=== PATIENT | male | born 1955 ===

== ENCOUNTER 2017-06-14 07:13 | Emergency (ER) | payer BC ==
--- NOTE | 2017-06-14 07:17 | ER Report ---
History and Physical Time Seen By MD: 07:10 HPI/ROS CHIEF COMPLAINT: Partial trauma alert; Coy Jin; 1955 HISTORY OF PRESENT ILLNESS: Patient was seen immediately upon arrival. Patient is a 61-year-old male who is brought to the emergency department by EMS after falling down elevator shaft of approximately 1 floor. The patient has some amnesia regarding the events and cannot give a clear to sites of history. According to EMS patient was in the old building and he fell approximately 1 floor down elevator shaft. Mostly complaining of right-sided pelvic and hip pain. The patient is unable to move the right lower extremity secondary to pain. Patient has a past mental history for diabetes he is also on Xarelto for prior history of strokes. Patient denies any headache or head pain. Denies neck pain. He does report pain to the thoracic and lumbar spine. He denies abdominal pain. REVIEW OF SYSTEMS: Constitutional: No fever, no chills. Eyes: No discharge. ENT: No sore throat. Cardiovascular: No chest pain, no palpitations. Respiratory: No cough, no shortness of breath. Gastrointestinal: No abdominal pain, no vomiting. Genitourinary: No hematuria. Musculoskeletal: Right hip, thoracic and lumbar pain. Skin: No rashes. Neurological: No headache. Allergies- iodine Meds- Xarelto; "BP pill" PMHx- "CVA x2" HTN; "boarderline diabetes" Last Meal- 10 PM 06/13/17 Allergies: Coded Allergies: iodine (Verified Allergy, Severe, ANAPHYLAXIS, 04/28/15) INTERNAL AND EXTERNAL Sulfa (Sulfonamide Antibiotics) (Verified Allergy, Intermediate, RASH, 04/28/15) flaxseed (Verified Allergy, Intermediate, RUNNY NOSE, 04/28/15) Iodinated Contrast- Oral and IV Dye (Verified Allergy, Mild, 06/15/17) CAN PRE-MEDICATE WITH BENADRYL FOR CONSTRAST Uncoded Allergies: SEA FOOD (Allergy, Intermediate, BRONCHOSPASM, 06/19/13) Home Meds Active Scripts Levothyroxine Sodium (LEVOTHYROXINE SODIUM) 25 Mcg Tablet, 25 MCG PO QDAY, #30 Prov:RITESH KUO DO 04/28/15 Hydrocodone Bit/Acetaminophen (HYDROCODON-ACETAMINOPHEN 5-325) 1 Each Tablet, 1 EACH PO Q4-6H for pain, #20 TAKE ONE TABLET BY MOUTH EVERY 4-6 HOURS NEEDED FOR PAIN Prov:JACK BARRON MD 06/19/13 Cyclobenzaprine Hcl (CYCLOBENZAPRINE HCL) 10 Mg Tablet, 10 MG PO TID, #20 TAB TAKE 1 TABLET BY MOUTH THREE TIMES A DAY Prov:JACK BARRON MD 06/19/13 Reported Medications Omeprazole (PRILOSEC) 20 Mg Capsule.dr, 1 TAB PO DIALY 06/19/13 Atorvastatin Calcium (ATORVASTATIN CALCIUM) 80 Mg Tablet, 1 TAB PO DAILY 06/19/13 Lisinopril (LISINOPRIL) 10 Mg Tablet, 1 TAB PO BID 06/19/13 Past Medical/Surgical History Prior history of CVA 2, history of "prediabetes". Constitutional Vital Sign - Last 24 Hours 06/14/17 06/14/17 06/14/17 06/14/17 07:15 07:15 07:30 07:45 Temp 98.7 Pulse 80 101 106 Resp B/P (MAP) 136/89 138/89 (105) Pulse Ox 94 94 94 O2 Delivery Nasal Cannula Oxy Mask Oxy Mask O2 Flow Rate 10.0 10 10 06/14/17 06/14/17 06/14/17 06/14/17 08:30 08:45 09:00 09:15 Pulse 102 100 99 96 Resp 18 18 B/P (MAP) 140/86 (104) 122/78 (93) Pulse Ox 96 94 91 93 O2 Delivery Oxy Mask Oxy Mask Oxy Mask Oxy Mask O2 Flow Rate 10 10 10 10 06/14/17 06/14/17 06/14/17 06/14/17 09:15 09:30 09:42 09:44 Pulse 96 93 95 95 Resp 18 B/P (MAP) 93/71 (78) 111/75 (87) Pulse Ox 93 O2 Delivery Oxy Mask Oxy Mask Oxy Mask O2 Flow Rate 10 10 10 06/14/17 06/14/17 06/14/17 06/14/17 09:45 09:50 10:00 10:10 Pulse 95 93 93 97 Resp 21 22 8 15 B/P (MAP) 101/71 (81) 107/72 (84) 120/81 (94) Pulse Ox 93 90 90 93 O2 Delivery Oxy Mask Oxy Mask Oxy Mask Oxy Mask O2 Flow Rate 10 10 10 10 06/14/17 06/14/17 10:20 10:30 Pulse 94 95 Resp 27 27 B/P (MAP) 117/79 (92) 127/78 (94) Pulse Ox 95 95 O2 Delivery Oxy Mask Oxy Mask O2 Flow Rate 10 10 Physical Exam Primary Survey: Airway: Open, patent, no signs of pooling of secretions or obstruction. Patient able to speak without difficulty. Breathing: Non-labored, symmetrical rise and fall of the chest without paradoxical wall motion. Bilateral breath sounds that are equal. No dullness to percussion of the chest. Circulation: Patient is warm and well perfused. No distant heart sounds. No signs of external bleeding. No tenderness to the abdomen, pelvis is stable, no obvious long bone fractures or deformity. Disability: GCS E4 V5 M6 =15; able to move all extremities; denies any weakness , numbness or tingling. Exposure: the patient was completely exposed. Using in-line c-spine immobilization the patient was log rolled and the entire length of the spine was examined. There was midline pain noted between T10-L1 vertebrae without step off Rectal exam- deferred perineal exam- no blood at the urethral meatus. The patient was then covered in warm blankets. Adjuncts to primary survey: AP chest: at 0737-negative AP pelvis: at 0737- ? inferior right ramus fxr; otherwise appears intact and stable Fast exam: deferred Patient cleared for Stat CT head, c-spine, Chest ab, pelvis t and L spine Secondary Survey General/Constitutional: Patient is awake, alert, able to speak in full sentences without difficultly Head: Normocephalic and atraumatic. Eyes: Conjunctival clear, Pupils are equal and reactive to light. Extraocular muscles are intact and symmetrical. Sclera are clear and anicteric. No hyphema noted. No raccoon eyes Ears: External canals are clear. Tympanic membranes are clear with normal landmarks and light reflex. No patel sign Nares: No rhinorrhea or bleeding. Turbinates are pink and moist. No septal hematoma Oropharyngeal: No malocclusion. Mucous membranes are moist. There is no pharyngeal erythema or exudate. No pooling of secretions. Uvula is midline and symmetrical. Neck: Cervical spine immobilized with rigid cervical collar pending CT scan Cardiovascular: Heart is regular rate and rhythm without audible murmurs, rubs or gallops. Pulmonary: Lungs are clear to auscultation bilaterally. There are no wheezes, rales, or rhonchi. Chest rise is symmetrical Chest Wall: No tenderness or paradoxical chest wall motion. Abdomen: Soft, nontender, no guarding or peritoneal signs. Pelvis: Right-sided pelvic pain Extremities: Right lower extremity is held in external rotation (position of comfort). Patient pain with range of motion of right hip and right ankle without obvious deformity. Upper extremities and left lower extremity normal. Neuro: Alert and oriented X3, Cranial nerves 2 thru 12 are intact and symmetrical. GCS 15; sensation intact thoughout and symmetrical Skin: No rashes, skin is warm dry and well perfused. Medical Decision Making Data Points Result Diagram: 06/14/17 0725 06/14/17 0725 Laboratory Hematology Test 06/14/17 07:25 06/14/17 08:35 Red Blood Count 5.21 M/uL (4.00-5.60) Mean Corpuscular Volume 86.4 fL (80.0-96.0) Mean Corpuscular Hemoglobin 29.3 pg (26.0-33.0) Mean Corpuscular Hemoglobin Concent 33.9 g/dL (32.0-36.0) Red Cell Distribution Width 13.5 % (11.5-14.5) Mean Platelet Volume 9.6 fL (7.2-11.1) Neutrophils (%) (Auto) 75.2 % (39.4-72.5) Lymphocytes (%) (Auto) 18.8 % (17.6-49.6) Monocytes (%) (Auto) 4.1 % (4.1-12.4) Eosinophils (%) (Auto) 1.1 % (0.4-6.7) Basophils (%) (Auto) 0.8 % (0.3-1.4) Nucleated RBC Relative Count (auto) 0.0 /100WBC Neutrophils # (Auto) 15.9 K/uL (2.0-7.4) Lymphocytes # (Auto) 4.0 K/uL (1.3-3.6) Monocytes # (Auto) 0.9 K/uL (0.3-1.0) Eosinophils # (Auto) 0.2 K/uL (0.0-0.5) Basophils # (Auto) 0.2 K/uL (0.0-0.1) Nucleated RBC Absolute Count (auto) 0.01 K/uL Prothrombin Time 20.6 seconds (12.0-14.4) Prothromb Time International Ratio 1.73 Activated Partial Thromboplast Time 29 seconds (23-35) Sodium Level 140 mmol/L (137-145) Potassium Level 3.4 mmol/L (3.5-5.0) Chloride Level 102 mmol/L (98-107) Carbon Dioxide Level 23 mmol/L (22-30) Blood Urea Nitrogen 24 mg/dl (9-21) Creatinine 1.50 mg/dl (0.66-1.25) Glomerular Filtration Rate Calc 47.7 Random Glucose 212 mg/dl (75-110) Calcium Level 10.5 mg/dl (8.4-10.2) Total Bilirubin 0.6 mg/dl (0.2-1.3) Aspartate Amino Transf (AST/SGOT) 55 U/L (0-35) Alanine Aminotransferase (ALT/SGPT) 47 U/L (0-56) Alkaline Phosphatase 79 U/L (0-126) Total Protein 7.6 gm/dl (6.3-8.2) Albumin 4.4 g/dl (3.5-5.0) Serum Alcohol < 10 mg/dl Urine Color Yellow Urine Clarity Slightly-cloudy Urine pH 5.0 pH (4.8-9.5) Urine Specific [place] 1.027 Urine Protein 100 mg/dL (NEGATIVE) Urine Glucose (UA) 50 mg/dL (NEGATIVE) Urine Ketones Trace mg/dL (NEGATIVE) Urine Blood Moderate (NEGATIVE) Urine Nitrite Negative (NEGATIVE) Urine Bilirubin Negative (NEGATIVE) Urine Urobilinogen Negative mg/dL (0.2-1.9) Urine Leukocyte Esterase Negative (NEGATIVE) Urine RBC 1 /HPF (0-2/HPF) Urine WBC 3 /HPF (0-5/HPF) Urine Squamous Epithelial Cells Few /LPF (NONE-FEW) Urine Bacteria Negative /HPF (NONE-FEW) Urine Hyaline Casts Few /LPF (NONE-FEW) Urine Mucus Few /HPF (NONE-FEW) Chemistry Test 06/14/17 07:25 06/14/17 08:35 White Blood Count 21.1 k/uL (4.5-11.0) Red Blood Count 5.21 M/uL (4.00-5.60) Hemoglobin 15.3 g/dL (14.0-18.0) Hematocrit 45.0 % (42.0-52.0) Mean Corpuscular Volume 86.4 fL (80.0-96.0) Mean Corpuscular Hemoglobin 29.3 pg (26.0-33.0) Mean Corpuscular Hemoglobin Concent 33.9 g/dL (32.0-36.0) Red Cell Distribution Width 13.5 % (11.5-14.5) Platelet Count 265 K/uL (150-450) Mean Platelet Volume 9.6 fL (7.2-11.1) Neutrophils (%) (Auto) 75.2 % (39.4-72.5) Lymphocytes (%) (Auto) 18.8 % (17.6-49.6) Monocytes (%) (Auto) 4.1 % (4.1-12.4) Eosinophils (%) (Auto) 1.1 % (0.4-6.7) Basophils (%) (Auto) 0.8 % (0.3-1.4) Nucleated RBC Relative Count (auto) 0.0 /100WBC Neutrophils # (Auto) 15.9 K/uL (2.0-7.4) Lymphocytes # (Auto) 4.0 K/uL (1.3-3.6) Monocytes # (Auto) 0.9 K/uL (0.3-1.0) Eosinophils # (Auto) 0.2 K/uL (0.0-0.5) Basophils # (Auto) 0.2 K/uL (0.0-0.1) Nucleated RBC Absolute Count (auto) 0.01 K/uL Prothrombin Time 20.6 seconds (12.0-14.4) Prothromb Time International Ratio 1.73 Activated Partial Thromboplast Time 29 seconds (23-35) Glomerular Filtration Rate Calc 47.7 Calcium Level 10.5 mg/dl (8.4-10.2) Total Bilirubin 0.6 mg/dl (0.2-1.3) Aspartate Amino Transf (AST/SGOT) 55 U/L (0-35) Alanine Aminotransferase (ALT/SGPT) 47 U/L (0-56) Alkaline Phosphatase 79 U/L (0-126) Total Protein 7.6 gm/dl (6.3-8.2) Albumin 4.4 g/dl (3.5-5.0) Serum Alcohol < 10 mg/dl Urine Color Yellow Urine Clarity Slightly-cloudy Urine pH 5.0 pH (4.8-9.5) Urine Specific [place] 1.027 Urine Protein 100 mg/dL (NEGATIVE) Urine Glucose (UA) 50 mg/dL (NEGATIVE) Urine Ketones Trace mg/dL (NEGATIVE) Urine Blood Moderate (NEGATIVE) Urine Nitrite Negative (NEGATIVE) Urine Bilirubin Negative (NEGATIVE) Urine Urobilinogen Negative mg/dL (0.2-1.9) Urine Leukocyte Esterase Negative (NEGATIVE) Urine RBC 1 /HPF (0-2/HPF) Urine WBC 3 /HPF (0-5/HPF) Urine Squamous Epithelial Cells Few /LPF (NONE-FEW) Urine Bacteria Negative /HPF (NONE-FEW) Urine Hyaline Casts Few /LPF (NONE-FEW) Urine Mucus Few /HPF (NONE-FEW) Coagulation Test 06/14/17 07:25 Prothrombin Time 20.6 seconds Prothromb Time International Ratio 1.73 Activated Partial Thromboplast Time 29 seconds Toxicology Test 06/14/17 07:25 Serum Alcohol < 10 mg/dl Urinalysis Test 06/14/17 08:35 Urine Color Yellow Urine Clarity Slightly-cloudy Urine pH 5.0 pH (4.8-9.5) Urine Specific [place] 1.027 Urine Protein 100 mg/dL (NEGATIVE) Urine Glucose (UA) 50 mg/dL (NEGATIVE) Urine Ketones Trace mg/dL (NEGATIVE) Urine Blood Moderate (NEGATIVE) Urine Nitrite Negative (NEGATIVE) Urine Bilirubin Negative (NEGATIVE) Urine Urobilinogen Negative mg/dL (0.2-1.9) Urine Leukocyte Esterase Negative (NEGATIVE) Urine RBC 1 /HPF (0-2/HPF) Urine WBC 3 /HPF (0-5/HPF) Urine Squamous Epithelial Cells Few /LPF (NONE-FEW) Urine Bacteria Negative /HPF (NONE-FEW) Urine Hyaline Casts Few /LPF (NONE-FEW) Urine Mucus Few /HPF (NONE-FEW) EKG/Imaging EKG Interpretation EKG that was performed at 7:37 AM reveals sinus tachycardia without any significant ST segment or T-wave abnormalities. Monitor Interpretation: Sinus Tachycardia Imaging FACILITY: [facility] PATIENT NAME: Fabien Arellano : 1955 MR: [id number] V: [id number] EXAM DATE: ORDERING PHYSICIAN: FRANKIE YBARRA TECHNOLOGIST: Location: [facility] Patient: Fabien Arellano : 1955 Visit/Account:[id number] Date of Sevice: 06/14/[address] scan without contrast COMPARISONS: None HISTORY: Trauma TECHNIQUE: Non-contrast head CT was performed with sagittal and coronal reformations. One of the following dose optimization techniques was utilized in the performance of this exam: automated exposure control; adjustment of the mA and/ or kV according to patient size; or use of iterative reconstruction technique. Specific details can be referenced in the facility's radiology CT exam operational policy. FINDINGS: There is no hydrocephalus or midline shift. The basal cisterns, edwards-white differentiation, and convexity sulci are maintained. Cataract postsurgical change noted. Perivascular space versus chronic lacunar infarct in the right jayjay. Mild patchy white matter hypoattenuation. Trace 1.6 mm subdural hemorrhage along the posterior midline falx, coronal image 75. Trace left frontal vertex subarachnoid hemorrhage, sagittal image 46. The mastoid air cells are clear. The paranasal sinuses are clear. The osseous structures are normal. IMPRESSION: Trace left frontal vertex acute subarachnoid hemorrhage. 1.6 mm thick acute subdural hemorrhage along the posterior midline falx. Report Dictated By: Peter Bell MD at 06/14/2017 9:05 AM Report E-Signed By: Peter Bell MD at 06/14/2017 9:12 AM WSN:[email or web address] FACILITY: [facility] PATIENT NAME: Fabien Arellano : 1955 MR: [id number] V: [id number] EXAM DATE: ORDERING PHYSICIAN: FRANKIE YBARRA TECHNOLOGIST: Location: [facility] Patient: Fabien Arellano : 1955 Visit/Account:[id number] Date of Sevice: 06/14/2017 EXAMINATION: CT Cervical spine without intravenous contrast HISTORY: Trauma COMPARISON: None. TECHNIQUE: Axial images were obtained from the skull base through the upper thoracic spine without IV contrast administration. Coronal and sagittal reformatted images were generated from the axial source data. One of the following dose optimization techniques was utilized in the performance of this exam: automated exposure control; adjustment of the mA and/ or kV according to patient size; or use of iterative reconstruction technique. Specific details can be referenced in the facility's radiology CT exam operational policy. FINDINGS: Vertebral bodies and posterior elements: Normal vertebral body heights. No fracture or osseous destruction. Alignment: Normal. Disc Spaces: Mild C4-5 and C5-6 degenerative disc disease. Soft tissues: No prevertebral soft tissue abnormality. Slightly dense soft tissue thickening in the anterior aspect of the canal extends from the lower C3 through the upper C5 level measures 4.7 mm AP dimension at the lower C4 level, axial image 81. There is additional similar dense thickening in the posterior right aspect of the canal at the C4 level, axial image 80. These findings appear to result in severe thecal sac narrowing not well characterized by CT. Visualized upper chest: Normal. IMPRESSION: 1. No fracture or malalignment. 2. Dense soft tissue thickening in the anterior and right posterior lateral aspects of the canal extending from the lower C3 through the upper C5 level measuring up to 4.7 mm AP dimension. This results in apparent severe thecal sac narrowing not well characterized by CT. This finding is concerning for acute epidural space hemorrhage. A large disc extrusion is felt less likely. MRI is recommended for further characterization. Report Dictated By: Peter Bell MD at 06/14/2017 9:12 AM Report E-Signed By: Peter Bell MD at 06/14/2017 9:19 AM WSN:[email or web address] FACILITY: [facility] PATIENT NAME: Fabien Arellano : 1955 MR: [id number] V: [id number] EXAM DATE: ORDERING PHYSICIAN: FRANKIE YBARRA TECHNOLOGIST: Location: [facility] Patient: Fabien Arellano : 1955 Visit/Account:[id number] Date of Sevice: 06/14/2017 Right femur Indication:Fall Comparison: None available Findings: Alignment appears anatomic at the right hip. Right pubic rami are without fracture. Multiple views of the right femur demonstrate anatomic alignment without fracture or destructive osseous process. No significant joint fluid at the level of the knee. IMPRESSION: 1. No acute osseous abnormality right femur. Report Dictated By: Rafiq Haley MD at 06/14/2017 8:22 AM Report E-Signed By: Rafiq Haley MD at 06/14/2017 8:22 AM WSN:[facility] FACILITY: [facility] PATIENT NAME: Fabien Arellano : 1955 MR: [id number] V: [id number] EXAM DATE: ORDERING PHYSICIAN: FRANKIE YBARRA TECHNOLOGIST: Location: [facility] Patient: Fabien Arellano : 1955 Visit/Account:[id number] Date of Sevice: 06/14/2017 Exam type: ANKLE 3 VIEW MIN RIGHT History: pain Comparison: None. Findings: There is no evidence of acute fracture-dislocation involving the right ankle. No radiopaque soft tissue foreign bodies are seen IMPRESSION: 1. No acute osteoarticular abnormality of the right ankle is seen Report Dictated By: Chika Herrera MD at 06/14/2017 9:32 AM Report E-Signed By: Chika Herrera MD at 06/14/2017 9:34 AM [facility]: [facility] PATIENT NAME: Fabien Arellano : 1955 MR: [id number] V: [id number] EXAM DATE: [id number] ORDERING PHYSICIAN: FRANKIE YBARRA TECHNOLOGIST: Location: [facility] Patient: MaybelindaFabien : 1955 Visit/Account:[id number] Date of Sevice: 06/14/2017 PELVIS HISTORY: trauma COMPARISON: None. FINDINGS: Bones of the pelvis appears symmetric. Mild degenerative changes noted in the hips. SI joints are symmetric. No definite fracture or destructive osseous process. IMPRESSION: No radiographic evidence of acute osseous trauma Report Dictated By: Rafiq Haley MD at 06/14/2017 8:21 AM Report E-Signed By: Rafiq Haley MD at 06/14/2017 8:21 AM WSN:[facility] FACILITY: [facility] PATIENT NAME: Fabien Arellano : 1955 MR: [id number] V: [id number] EXAM DATE: ORDERING PHYSICIAN: FRANKIE YBARRA TECHNOLOGIST: Location: [facility] Patient: Fabien Arellano : 1955 Visit/Account:[id number] Date of Sevice: 06/14/2017 EXAMINATION: CT Thoracic spine without intravenous contrast HISTORY: Trauma COMPARISON: None. TECHNIQUE: Axial images were obtained through the thoracic spine without IV contrast administration. Coronal and sagittal reformatted images were generated from the source data. One of the following dose optimization techniques was utilized in the performance of this exam: automated exposure control; adjustment of the mA and/ or kV according to patient size; or use of iterative reconstruction technique. Specific details can be referenced in the facility's radiology CT exam operational policy. FINDINGS: T9 spinous process fracture and bilateral inferior T9 articular pillars. Acute fractures within the right T10 articular pillar with extension through the T10 spinous process. Displaced left T10 articular pillar fracture. The left T10 articular pillar is perched on the left T11 articular pillar. Acute fracture through a right lateral inferior T10 endplate osteophyte, coronal image 95. T11 burst fracture with 60% anterior vertebral body height loss. Retropulsion of the posterior upper T11 vertebral body measures up to 5 mm, sagittal image 97 and results in moderate to severe canal narrowing in conjunction with anterolisthesis at the T10-11 level. Acute fractures involving the inferior and upper aspects of the left T11 articular pillar. Fracture extension through the T11 spinous process. Acute fracture through the upper right T11 articular pillar. Bilateral T11 acute lamina fractures. T12 left-sided acute burst fracture with mild left-sided height loss and approximate 3.5 mm retropulsion of the posterior vertebral body. Left T12 nondisplaced lamina fracture extends into the midline spinous process. Nondisplaced left T12 pedicle fracture. Vertebral body heights are otherwise normal. No additional fracture identified. Grade 1 anterolisthesis of T10 on T11. Right T10 and right T11 transverse process fractures. Scattered acute rib fractures, see chest CT for further details. Coronary artery calcifications noted. Cholelithiasis as well. Punctate calcification within the posterior aspect of the thecal sac potentially within the posterior cord at the T9 level, axial image 137. Prevertebral paraspinal soft tissue thickening at the levels of fractures. IMPRESSION: 1. Acute T11 burst fracture with 60% anterior vertebral body height loss and approximate 5 mm retropulsion of the posterior vertebral body. Additional acute fractures involving the bilateral T11 lamina, bilateral articular pillars and spinous process. 2. Bilateral acute T10 articular pillar fractures. The left T10 articular pillar is perched on the left T11 articular pillar. Associated grade 1 anterolisthesis of T10 on T11. Additional acute fracture through an inferolateral right T10 vertebral body endplate osteophyte. 3. Moderate to potentially severe T10-11 canal narrowing secondary to the anterolisthesis and retropulsed T11 vertebral body. 4. Acute T12 left-sided burst fracture with 3.5 mm retropulsion. Left T12 lamina and left pedicle fractures and T12 spinous process fracture. 5. Right T10 and T11 transverse process fractures. 6. Bilateral inferior T9 articular pillar acute fractures with extension through the T9 spinous process. 7. Punctate chronic calcification within the posterior aspect of the thecal sac at the T9 level may represent a chronic calcification external to the spinal cord or may be within the spinal cord of indeterminate etiology and of questionable significance. Report Dictated By: Peter Bell MD at 06/14/2017 9:19 AM Report E-Signed By: Peter Bell MD at 06/14/2017 9:45 AM WSN:DS2HI ED Course/Re-evaluation ED Course 06/14/2017 7:25:39 am Plan at this time will be to work the patient up for injuries. We will perform CT of the head and C-spine thoracic and lumbar vertebrae. We will perform a contrast enhanced study of the chest abdomen and pelvis. 06/14/2017 8:05:36 am patient reports "iodine allergy" will premedicated with 25 mg of Benadryl even though the likelihood of adverse reaction to contrast enhanced CT scan is low. Believe benefit of the study outweighs any risk at this point since the patient did have a significant fall and is on a anticoagulant so I need to rule out any type of inter-thoracic or abdominal hemorrhage. 06/14/2017 9:56:10 am Patint with acute ICH; possible epidural space hematoma on c-spine CT; perched facet T10 on T11; burst fractrures T11-T12 patient is neurovascularly intact at this time. He is sensate to both lower extremities down to the toes he is able to wiggle his toes in both plantar and dorsiflex the feet. He complains of no numbness or tingling. [facility] was called at 09 ; they are en route to [facility] as of 927 with an ETA for approximately 20- 25 minutes. I also at this time spoke with Dr. Thompson at [facility] trauma surgery who accepted patient for transfer at this time. History physical exam all pertinent lab data and imaging studies were reviewed with Dr. Thompson. I also explained to Dr. Thompsno that the patient is on Xarelto. He asked whether we have any PCC to administer and I explained that we did not. Patient And his spouse were made aware of his injuries as well as his need for transport to higher level of care. Decision to Disposition Date: Jun 14, 2017 Decision to Disposition Time: 10:00 Depart Departure Latest Vital Signs Vital Signs Date Time Temp Pulse Resp B/P (MAP) Pulse Ox O2 Delivery O2 Flow Rate FiO2 06/14/17 10:30 95 27 127/78 (94) 95 Oxy Mask 10 06/14/17 07:15 98.7 Impression: Primary Impression: Intracranial hemorrhage after injury without loss of consciousness Additional Impression: Fracture of thoracic spine without spinal cord lesion Condition: Condition Unchanged Disposition: XFER TO [facility] (To Dr Thompson at [facility]) Problem Qualifiers Primary Impression: Intracranial hemorrhage after injury without loss of consciousness Encounter type: initial encounter Qualified Codes: S06.300A - Unspecified focal traumatic brain injury without loss of consciousness, initial encounter Additional Impression: Fracture of thoracic spine without spinal cord lesion Encounter type: initial encounter Fracture type: closed Qualified Codes: S22.009A - Unspecified fracture of unspecified thoracic vertebra, initial encounter for closed fracture FRANKIE YBARRA MD Jun 14, 2017 07:17
[2017-06-14] MEDS ORDERED: DIPHTH/TETANUS/ACEL. PERTUSSIS IM ONE (07:20)
[2017-06-14] MEDS ORDERED: fentaNYL CITR 100 MCG/2 ML AMP IVP ONE ×4 (07:20→11:00)
[2017-06-14] MEDS ORDERED: NS 0.9% 20 ML SDV 60 ML ONE (07:29)
[2017-06-14] MEDS ORDERED: IOPAMIDOL 76% 75 ML INFUS BTL 75 ML ONE (07:29)
[2017-06-14 07:39] LABS: PLATELET COUNT, AUTOMATED 265 K/uL (150-450)
[2017-06-14 07:44] LABS: INR 1.73
[2017-06-14] MEDS ORDERED: NS(*) 0.9% 1000 ML BAG 1,000 ML IV ONE (07:45)
--- NOTE | 2017-06-14 07:48 | EKG ---
FACILITY: [facility] PATIENT NAME: PEDRO LUIS MARQUEZ : [id number] MR: [id number] V: [id number] EXAM DATE: ORDERING PHYSICIAN: FRANKIE YBARRA TECHNOLOGIST: GIA Lino Reason : TRAUMA - TESHA STEVENS Blood Pressure : / mmHG Vent. Rate : 108 BPM Atrial Rate : 108 BPM P-R Int : 134 ms QRS Dur : 090 ms QT Int : 358 ms P-R-T Axes : 021 -28 056 degrees QTc Int : 479 ms Sinus tachycardia Nonspecific ST abnormality Abnormal ECG No previous ECGs available Confirmed by YARELI PRUETT ([id number]) on 06/14/2017 2:20:38 PM Referred By: TATE Confirmed By:YARELI PRUETT
[2017-06-14] MEDS ORDERED: diphenhydrAMINE 50 MG/ML VIAL IVP ONE (08:05)
--- NOTE | 2017-06-14 08:24 | RADIOLOGY IMAGING REPORT ---
FACILITY: [facility] - [place] PATIENT NAME: Coy Jin : 1955 MR: [id number] V: [id number] EXAM DATE: ORDERING PHYSICIAN: FRANKIE YBARRA TECHNOLOGIST: Location: [facility] Patient: Coy Jin : 1955 Visit/Account:[id number] Date of Sevice: 06/14/2017 Single view of the chest Indication: Trauma. Comparison: None available Findings: Volumes are low. Heart appears enlarged. There is central vascular engorgement with mild coarsening of the perihilar interstitium. The central bronchovascular crowding is likely due to low volumes. No evidence of definite consolidation, effusion or pneumothorax. No acute bony finding. IMPRESSION: 1. Very low volumes. Central bronchovascular crowding which is likely secondary to hypoventilation. Additionally, this could indicate volume overload Report Dictated By: Rafiq Haley MD at 06/14/2017 8:19 AM Report E-Signed By: Rafiq Haley MD at 06/14/2017 8:20 AM WSN:[email or web address]
--- NOTE | 2017-06-14 08:27 | RADIOLOGY IMAGING REPORT ---
FACILITY: [facility] - [place] PATIENT NAME: Coy Jin : 1955 MR: [id number] V: [id number] EXAM DATE: ORDERING PHYSICIAN: FRANKIE YBARRA TECHNOLOGIST: Location: [facility] - [place] Patient: Coy Jin : 1955 Visit/Account:[id number] Date of Sevice: 06/14/2017 PELVIS HISTORY: trauma COMPARISON: None. FINDINGS: Bones of the pelvis appears symmetric. Mild degenerative changes noted in the hips. SI joints are s ymmetric. No definite fracture or destructive osseous process. IMPRESSION: No radiographic evidence of acute osseous trauma Report Dictated By: Rafiq Haley MD at 06/14/2017 8:21 AM Report E-Signed By: Rafiq Haley MD at 06/14/2017 8:21 AM WSN:[email or web address]
--- NOTE | 2017-06-14 08:27 | RADIOLOGY IMAGING REPORT ---
FACILITY: [facility] - [place] PATIENT NAME: Coy Jin : 1955 MR: [id number] V: [id number] EXAM DATE: ORDERING PHYSICIAN: FRANKIE YBARRA TECHNOLOGIST: Location: [facility] [place] Patient: Coy Jin : 1955 Visit/Account:[id number] Date of Sevice: 06/14/2017 Right femur Indication:Fall Comparison: None available Findings: Alignment appears anatomic at the right hip. Right pubic rami are without fracture. Multiple views of the right femur demonstrate anatomic alignment without fracture or destructive osseous process. N o significant joint fluid at the level of the knee. IMPRESSION: 1. No acute osseous abnormality right femur. Report Dictated By: Rafiq Haley MD at 06/14/2017 8:22 AM Report E-Signed By: Rafiq Haley MD at 06/14/2017 8:22 AM WSN:[email or web address]
--- NOTE | 2017-06-14 09:10 | RADIOLOGY IMAGING REPORT ---
FACILITY: [facility] - [place] PATIENT NAME: Coy Jin : 1955 MR: [id number] V: [id number] EXAM DATE: ORDERING PHYSICIAN: FRANKIE YBARRA TECHNOLOGIST: Location: [facility] - [place] Patient: Coy Jin : 1955 Visit/Account:[id number] Date of Sevice: 06/14/2017 CHEST/AB/PELV W/CONTRAST HISTORY: trauma ADDITIONAL HISTORY: None. TECHNIQUE: Following administration of IV contrast axial images acquired through the chest abdomen a nd pelvis during the portal venous phase. Coronal and sagittal reformatting was also performed. CONTRAST: 75 mL Isovue-[id number] COMPARISON: None. FINDINGS: CHEST: Lungs/Pleura: There is patchy airspace consolidation seen along the posterior aspect of the upper lo bes and lower lobes and posterior aspect of the lingula. There is no evidence of a pneumothorax or p neumomediastinum. Mediastinum/lymph nodes: Negative. Heart/vessels: There are at least moderate coronary artery calcifications. Mild to moderate callus occasions identified at the aortic arch Bones/soft tissues: There is a severely comminuted fracture through the T11 vertebral body and poste rior elements of T11 and posterior elements of T9 and T10 and T12 in addition to the posterior superi or aspect of the T12 vertebral body. An left transverse processes of L1 L2 L3 and right transverse p rocesses of T10 and 11. There is an old appearing fracture through the posterior aspect of the left 12th rib. . There is an acute appearing nondisplaced fracture through the posterior medial right ni nth rib These findings will be discussed in great detail and a dedicated CT of the thoracic and lumba r spine. ABDOMEN AND PELVIS: Hepatobiliary: 1.2 cm round area of increased density seen along the dome of the right lobe of the l iver. This could represent an incidental enhancing mass versus an area of hemorrhage. Former is fav ored. There is cholelithiasis although no evidence of biliary ductal dilatation Spleen: There is a tiny, curvilinear hypodense collection projecting just inferior to the inferior t ip of the spleen. This is best seen on coronal images #70 and sagittal images #34. This could repre sent a tiny amount of subcapsular hemorrhage versus artifact from subtle motion artifact Pancreas: Negative. Adrenals: Negative. Kidneys ureters and bladder : Negative. Genitalia: Prostate gland appears inhomogeneous, contains multiple calcifications and impinges upon t he floor the bladder GI: Small hiatal hernia Vessels/spaces/nodes: Moderate vascular calcifications about the abdomen and pelvis there are linear areas of both opacified and unopacified blood in the superior mesenteric vein main portal vein and r ight and left portal veins. This could represent unopacified blood mixing with opacified blood versu s partial thrombus. There are numerous mesenteric lymph nodes most measuring less than 1 cm Bones/soft tissues: Please see above discussion under the chest bones and soft tissues. The patient did receive a dedicated CT of the thoracolumbar spine for additional details Additional findings: None pertinent. IMPRESSION: There is patchy airspace consolidation along the posterior aspect of the upper lobes lower lobes and lingula. This may represent areas of pulmonary contusion or possibly aspiration or dependent atelect asis Moderate vascular calcination occasions throughout the chest and pelvis including the coronary arteri es Severely comminuted fracture through the T11 vertebral body with additional fractures as described ab ove. This will be discussed in detail in a separate CT of the thoracic spine and lumbar spine. There is 1.2 cm round area of increased density along the dome of the right lobe the liver. This cou ld represent an incidental enhancing mass versus an area of hemorrhage. The former is favored. Cholelithiasis although no evidence of biliary ductal dilatation There is a tiny curvilinear hypodens e collection just inferior to the inferior tip of the spleen. This described above and could represe nt a tiny amount of subcapsular hemorrhage versus artifact from subtle motion artifact. If further d iagnostic imaging is desired ultrasound may provide further clarification. Small hiatal hernia There are linear areas of both opacified and unopacified blood in the superior mesenteric vein and po rtal vein and right and left portal veins. This could represent unopacified blood mixing with opacif ied blood versus partial thrombus. This also could be further evaluated by ultrasound. Results were called to FRANKIE YBARRA at 06/14/2017 9:05 AM. Report Dictated By: Chika Herrera MD at 06/14/2017 8:37 AM Report E-Signed By: Chika Herrera MD at 06/14/2017 9:06 AM WSN:[email or web address]
--- NOTE | 2017-06-14 09:16 | RADIOLOGY IMAGING REPORT ---
FACILITY: [facility] - [place] PATIENT NAME: Coy Jin : 1955 MR: [id number] V: [id number] EXAM DATE: ORDERING PHYSICIAN: FRANKIE YBARRA TECHNOLOGIST: Location: [facility] Patient: Coy Jin : 1955 Visit/Account:[id number] Date of Sevice: 06/14/[address] scan without contrast COMPARISONS: None HISTORY: Trauma TECHNIQUE: Non-contrast head CT was performed with sagittal and coronal reformations. One of the following dose optimization techniques was utilized in the performance of this exam: autom ated exposure control; adjustment of the mA and/or kV according to patient size; or use of iterative reconstruction technique. Specific details can be referenced in the facility's radiology CT exam ope rational policy. FINDINGS: There is no hydrocephalus or midline shift. The basal cisterns, edwards-white differentiation, and conve xity sulci are maintained. Cataract postsurgical change noted. Perivascular space versus chronic lacu blank infarct in the right jayjay. Mild patchy white matter hypoattenuation. Trace 1.6 mm subdural hemorrhage along the posterior midline falx, coronal image 75. Trace left front al vertex subarachnoid hemorrhage, sagittal image 46. The mastoid air cells are clear. The paranasal sinuses are clear. The osseous structures are normal . IMPRESSION: Trace left frontal vertex acute subarachnoid hemorrhage. 1.6 mm thick acute subdural hemorrhage along the posterior midline falx. Report Dictated By: Peter Bell MD at 06/14/2017 9:05 AM Report E-Signed By: Peter Bell MD at 06/14/2017 9:12 AM WSN:[email or web address]
--- NOTE | 2017-06-14 09:24 | RADIOLOGY IMAGING REPORT ---
FACILITY: [facility] PATIENT NAME: Coy Jin : 1955 MR: [id number] V: [id number] EXAM DATE: ORDERING PHYSICIAN: FRANKIE YBARRA TECHNOLOGIST: Location: [facility] - [place] Patient: Coy Jin : 1955 Visit/Account:[id number] Date of Sevice: 06/14/2017 ADDENDUM #1 Results were called to FRANKIE YBARRA. Report Dictated By: Peter Bell MD at 06/14/2017 10:00 AM Report E-Signed By: Peter Bell MD at 06/14/2017 10:49 AM ORIGINAL REPORT EXAMINATION: CT Cervical spine without intravenous contrast HISTORY: Trauma COMPARISON: None. TECHNIQUE: Axial images were obtained from the skull base through the upper thoracic spine without I V contrast administration. Coronal and sagittal reformatted images were generated from the axial sour ce data. One of the following dose optimization techniques was utilized in the performance of this exam: autom ated exposure control; adjustment of the mA and/or kV according to patient size; or use of iterative reconstruction technique. Specific details can be referenced in the facility's radiology CT exam ope rational policy. FINDINGS: Vertebral bodies and posterior elements: Normal vertebral body heights. No fracture or osseous destr uction. Alignment: Normal. Disc Spaces: Mild C4-5 and C5-6 degenerative disc disease. Soft tissues: No prevertebral soft tissue abnormality. Slightly dense soft tissue thickening in the a nterior aspect of the canal extends from the lower C3 through the upper C5 level measures 4.7 mm AP d imension at the lower C4 level, axial image 81. There is additional similar dense thickening in the p osterior right aspect of the canal at the C4 level, axial image 80. These findings appear to result i n severe thecal sac narrowing not well characterized by CT. Visualized upper chest: Normal. IMPRESSION: 1. No fracture or malalignment. 2. Dense soft tissue thickening in the anterior and right posterior lateral aspects of the canal exte nding from the lower C3 through the upper C5 level measuring up to 4.7 mm AP dimension. This results in apparent severe thecal sac narrowing not well characterized by CT. This finding is concerning for acute epidural space hemorrhage. A large disc extrusion is felt less l ikely. MRI is recommended for further characterization. Report Dictated By: Peter Bell MD at 06/14/2017 9:12 AM Report E-Signed By: Peter Bell MD at 06/14/2017 9:19 AM WSN:[email or web address]
--- NOTE | 2017-06-14 09:38 | RADIOLOGY IMAGING REPORT ---
FACILITY: [facility] PATIENT NAME: Coy Jin : 1955 MR: [id number] V: [id number] EXAM DATE: ORDERING PHYSICIAN: FRANKIE YBARRA TECHNOLOGIST: Location: [facility] - [place] Patient: Coy Jin : 1955 Visit/Account:[id number] Date of Sevice: 06/14/2017 Exam type: ANKLE 3 VIEW MIN RIGHT History: pain Comparison: None. Findings: There is no evidence of acute fracture-dislocation involving the right ankle. No radiopaque soft tis charlette foreign bodies are seen IMPRESSION: 1. No acute osteoarticular abnormality of the right ankle is seen Report Dictated By: Chika Herrera MD at 06/14/2017 9:32 AM Report E-Signed By: Chika Herrera MD at 06/14/2017 9:34 AM WSN:[email or web address]
--- NOTE | 2017-06-14 09:50 | RADIOLOGY IMAGING REPORT ---
[place] [facility] [place] NAME: Coy Jin : 1955 MR: [id number] V: [id number] EXAM DATE: ORDERING PHYSICIAN: FRANKIE YBARRA TECHNOLOGIST: Location: [facility] Patient: Coy Jin : 1955 Visit/Account:[id number] Date of Sevice: 06/14/2017 ADDENDUM #1 Results were called to FRANKIE YBARRA on 06/14/2017 10:00 AM. Report Dictated By: Peter Bell MD at 06/14/2017 9:58 AM Report E-Signed By: Peter Bell MD at 06/14/2017 10:00 AM ORIGINAL REPORT EXAMINATION: CT Thoracic spine without intravenous contrast HISTORY: Trauma COMPARISON: None. TECHNIQUE: Axial images were obtained through the thoracic spine without IV contrast administration. Coronal and sagittal reformatted images were generated from the source data. One of the following dose optimization techniques was utilized in the performance of this exam: autom ated exposure control; adjustment of the mA and/or kV according to patient size; or use of iterative reconstruction technique. Specific details can be referenced in the facility's radiology CT exam ope rational policy. FINDINGS: T9 spinous process fracture and bilateral inferior T9 articular pillars. Acute fractures within the right T10 articular pillar with extension through the T10 spinous process. Displaced left T10 articular pillar fracture. The left T10 articular pillar is perched on the left T 11 articular pillar. Acute fracture through a right lateral inferior T10 endplate osteophyte, coronal image 95. T11 burst fracture with 60% anterior vertebral body height loss. Retropulsion of the posterior upper T11 vertebral body measures up to 5 mm, sagittal image 97 and results in moderate to severe canal blank rowing in conjunction with anterolisthesis at the T10-11 level. Acute fractures involving the inferio r and upper aspects of the left T11 articular pillar. Fracture extension through the T11 spinous proc ess. Acute fracture through the upper right T11 articular pillar. Bilateral T11 acute lamina fracture s. T12 left-sided acute burst fracture with mild left-sided height loss and approximate 3.5 mm retropuls ion of the posterior vertebral body. Left T12 nondisplaced lamina fracture extends into the midline s pinous process. Nondisplaced left T12 pedicle fracture. Vertebral body heights are otherwise normal. No additional fracture identified. Grade 1 anterolisthesis of T10 on T11. Right T10 and right T11 transverse process fractures. Scattered acute rib fractures, see chest CT for further details. Coronary artery calcifications noted. Cholelithiasis as well. Punctate calcification within the posterior aspect of the thecal sac potentially within the posterior cord at the T9 level, axial image 137. Prevertebral paraspinal soft tissue thickening at the levels of fractures. IMPRESSION: 1. Acute T11 burst fracture with 60% anterior vertebral body height loss and approximate 5 mm retropu lsion of the posterior vertebral body. Additional acute fractures involving the bilateral T11 lamina, bilateral articular pillars and spinous process. 2. Bilateral acute T10 articular pillar fractures. The left T10 articular pillar is perched on the le ft T11 articular pillar. Associated grade 1 anterolisthesis of T10 on T11. Additional acute fracture through an inferolateral right T10 vertebral body endplate osteophyte. 3. Moderate to potentially severe T10-11 canal narrowing secondary to the anterolisthesis and retropu lsed T11 vertebral body. 4. Acute T12 left-sided burst fracture with 3.5 mm retropulsion. Left T12 lamina and left pedicle fra ctures and T12 spinous process fracture. 5. Right T10 and T11 transverse process fractures. 6. Bilateral inferior T9 articular pillar acute fractures with extension through the T9 spinous proce ss. 7. Punctate chronic calcification within the posterior aspect of the thecal sac at the T9 level may r epresent a chronic calcification external to th spinal cord or may be within the spinal cord of inde terminate etiology and of questionable significance. Report Dictated By: Peter Bell MD at 06/14/2017 9:19 AMReport E-Signed By: Peter Bell MD at 06/14/2017 9:45 AM WSN:[email or web address]
--- NOTE | 2017-06-14 09:57 | RADIOLOGY IMAGING REPORT ---
FACILITY: [facility] PATIENT NAME: Coy Jin : 1955 MR: [id number] V: [id number] EXAM DATE: ORDERING PHYSICIAN: FRANKIE YBARRA TECHNOLOGIST: Location: [facility] - [place] Patient: Coy Jin : 1955 Visit/Account:[id number] Date of Sevice: 06/14/2017 EXAMINATION: CT Lumbar spine without intravenous contrast HISTORY: Trauma COMPARISON: None. TECHNIQUE: Axial images were obtained through the lumbar spine without IV contrast administration. C oronal and sagittal reformatted images were generated from the source data. One of the following dose optimization techniques was utilized in the performance of this exam: autom ated exposure control; adjustment of the mA and/or kV according to patient size; or use of iterative reconstruction technique. Specific details can be referenced in the facility's radiology CT exam ope rational policy. FINDINGS: Alignment: Normal. Vertebral bodies: Lumbar vertebral body heights are normal. Left acute L1-L3 transverse process fract ures. Disc Spaces: Negative. Hardware: None. Visualized retroperitoneal/abdominal structures: Normal for age. IMPRESSION: Acute left L1-L3 transverse process fractures. Report Dictated By: Peter Bell MD at 06/14/2017 9:46 AM Report E-Signed By: Peter Bell MD at 06/14/2017 9:51 AM WSN:[email or web address]
[2017-06-14 10:30] VITALS: BP 127/78
[2017-06-14] MEDS ORDERED: fentaNYL CITR 100 MCG/2 ML AMP ONE (10:56)
== END 2017-06-14 11:04 | disposition short-term general hospital (02) ==
LOC: ER 07:35 → MERGE 07:35 → ER 11:04
DX: S06.300A Unspecified focal traumatic brain injury without loss of consciousness, initial encounter (principal); S22.009A Unspecified fracture of unspecified thoracic vertebra, initial encounter for closed fracture; W17.89XA Other fall from one level to another, initial encounter
CPT/HCPCS: 70450; 71045; 71260; 72125; 72128; 72131; 72170; 73552; 73610; 74177; 80320; 81001; 85025; 85610; 85730; 86850; 86900; 86901; 90471; 90715; 96361; 96374; 96375; 96376; 99285; J1200; J3010; J7030; J7050; Q9967; 82040; 82247; 82310; 82374; 82435; 82565; 82947; 84075; 84132; 84155; 84295; 84450; 84460; 84520

== ENCOUNTER → 2017-06-14 | Outpatient (CLI) | payer BC ==
[~2017-06-14] MED LIST: ATOR-1 PO; CYCL10TA29 PO; LEVO25TA61 PO; LEVO500T PO; LISI-362 PO; LOR5/325 PO; OMEP-114 PO
== END ==
LOC: AMB 06:43
PROVIDERS: ATTEND Nurse Practitioner
DX: M54.5 Low back pain (principal); M25.551 Pain in right hip; R07.89 Other chest pain; W17.89XA Other fall from one level to another, initial encounter
CPT/HCPCS: A0425; A0427

== ENCOUNTER → 2017-06-14 | Outpatient (REF) | LOC: AMB 10:02 | PROVIDERS: ATTEND Nurse Practitioner | DX: Z02.9 Encounter for administrative examinations, unspecified (principal) ==